=== PATIENT | male | born 1955 | race Caucasian/White ===

== ENCOUNTER 2017-12-19 17:40 | Emergency (ER) | payer BC, OTHER ==
[~2017-12-19] VITALS: Ht 188 cm; Wt 110.2 kg
[~2017-12-19 17:40] MED LIST: CLARITIN10 MG PO; LISINOPRIL10 MG PO
[2017-12-19 18:48] LABS: ABSOLUTE NEUTROPHILS 5.5 thou/uL (1.4-8.2); BASOPHILS 0.5 % (0.0-2.0); EOSINOPHILS 3.6 % (0.0-3.0); HEMATOCRIT 41.4 % (42.0-52.0); HEMOGLOBIN 14.5 gm/dL (14.0-18.0); LYMPHOCYTES 17.7 % (24.0-44.0); MCH 32.2 pg (26.0-34.0); MCV 92.2 fL (80.0-100.0); MONOCYTES 7.5 % (1.0-8.0); PLATELET COUNT 151 thou/uL (150-400); POLYS 70.7 % (36.0-66.0); RBC 4.49 mil/uL (4.50-6.00); RDW 12.6 % (10.5-14.5); WBC 7.8 thou/uL (4.0-11.0)
[2017-12-19 18:54] LABS: CALCIUM 9.1 mg/dL (8.5-10.1); CREATININE 1.3 mg/dL (0.7-1.3); POTASSIUM 3.3 mmol/L (3.5-5.1)
[2017-12-19] MEDS ORDERED: ZESTORETIC 20-1 EAC3 PO (19:14)
[2017-12-19] MEDS ORDERED: FISH OIL 1,001000 M2 PO (19:15)
[2017-12-19] MEDS ORDERED: VITAMIN E400 UNI2 PO (19:16)
[2017-12-19] MEDS ORDERED: ASPIR-TRIN325 MG PO (19:16)
[2017-12-19] MEDS ORDERED: VITAMIN D3400 UNIT PO (19:16)
[2017-12-19] MEDS ORDERED: CALCIUM 600 +1 EAC8 PO (19:16)
[2017-12-19] MEDS ORDERED: ZYRTEC10 M4 PO (19:16)
[2017-12-19] MEDS ORDERED: DOXYCYCLINE 10100 MG PO (19:44)
[2017-12-19 19:55] VITALS: BP 119/80
== END 2017-12-19 19:57 | disposition home or self-care (01) ==
LOC: ER 17:40
PROVIDERS: Physician Assistant
DX: L03.032 Cellulitis of left toe (principal); Z88.8 Allergy status to other drugs, medicaments and biological substances

== ENCOUNTER 2018-01-18 16:26 | Inpatient (IN) | payer BC, OTHER ==
[~2018-01-18] VITALS: Ht 188 cm; Wt 105.7 kg
--- NOTE | ~2018-01-18 | HC ---
[facility] [place] [address] CONSULTATION Name: ÓSCAR SIMPSON Room #: 220-P ADM IN M.R.#: [id number] Admission: 01/18/18 Attend Phys: Carlos Schwartz MD Discharge: Date of : 51 Report #: [id number] THIS REPORT FOR: //name// CC: [facility] physician/PCP Carlos Schwartz DATE OF SERVICE: 01/19/2018 INFECTIOUS DISEASES CONSULTATION REASON FOR CONSULTATION: I was asked to evaluate concerning left fifth toe osteomyelitis. HISTORY OF PRESENT ILLNESS: The patient is a 62-year-old with underlying history of degenerative arthritis. He has had multiple issues with his feet. He has had left Achilles tendon rupture repaired followed by a right ankle fusion. His ankle fusion was approximately 9 weeks ago. He was nonweightbearing and was requiring a lot more activity and support involving his left foot. He developed an ulcer over the lateral aspect of his fifth toe on the left. This was treated with several courses of oral antibiotic therapy including doxycycline, initially followed by Bactrim. Over the last 3 days, he has noticed fever, malaise, occasional chill and increased swelling to the fifth toe. He presents through the Emergency Room for further evaluation. REVIEW OF SYSTEMS: Notes some rash in the feet, right greater than left. No adenopathy. No headache, cough or sputum production. No nausea, vomiting or diarrhea. No dysuria or frequency. ALLERGIES: NAPROSYN. MEDICATIONS: Bactrim, Zestoretic, fish oil, Zyrtec, calcium, vitamin D, vitamin E. Vancomycin and Zosyn added today. PAST MEDICAL HISTORY: Hypertension, arthritis, multiple surgeries on his feet as noted above. FAMILY HISTORY: Noncontributory. SOCIAL HISTORY: Nonsmoker, no significant alcohol intake. REVIEW OF SYSTEMS: As noted above. PHYSICAL EXAMINATION: VITAL SIGNS: He was afebrile, hemodynamically stable, alert and cooperative. HEENT: Unremarkable. CHEST: Clear. [address] [address] CONSULTATION Name: ÓSCAR SIMPSON Room #: 220-P [facility] IN M.R.#: [id number] Admission: 01/18/18 Attend Phys: Carlos Schwartz MD Discharge: Date of : 51 Report #: [id number] HEART: Regular. ABDOMEN: Soft and nontender. EXTREMITIES: Right foot surgical incisions well approximated with no swelling, drainage or erythema. The left foot had swelling, erythema and induration involving the left fifth toe. Minimal pain in this region. Pulses were palpable. Sensation intact. Petechial rash, right foot greater than left. LABORATORY DATA: Hemoglobin 13.5, platelet count 131,000, white count 3.2 with 5% eosinophils with today's WBC of 2.8. Alkaline phosphatase 176. Liver function test normal. CRP 77. X-ray of the toe unremarkable. Creatinine 1.1. Blood cultures are negative to date. MRI scan shows osteomyelitis of the proximal fifth phalanx of the right foot. Soft tissue edema without abscess. IMPRESSION AND PLAN: Osteomyelitis of the left fifth toe due to previous traumatic injury, most likely. Along with this, the patient has had low grade fever and malaise. Also, note relative neutropenia may be drug related. Some of his fever may still have been related to his Bactrim. He does have mild rash to his legs, more of a petechial type rash with normal platelet count. I would recommend continuing broad antibiotic coverage with Zosyn. Would have orthopedic surgery evaluate the left toe for probable amputation. Although he has palpable pulses, we will still screen for evidence of peripheral vascular disease. <ELECTRONICALLY SIGNED> By: Jesús Marie MD 01/22/18 1000 1708 03 Jesús Marie MD /nt
--- NOTE | ~2018-01-18 | HC ---
[facility] [place] [address] CONSULTATION Name: ÓSCAR SIMPSON Room #: 220-P ADM IN M.R.#: [id number] Admission: 01/18/18 Attend Phys: Carlos Schwartz MD Discharge: Date of : 51 Report #: [id number] THIS REPORT FOR: //name// CC: [facility] physician/PCP Carlos Schwartz DATE OF SERVICE: 01/19/2018 CHIEF COMPLAINT: Infected left fifth toe. HISTORY OF PRESENT ILLNESS: This 62-year-old gentleman has had recent reconstructive surgery at the right ankle and foot by my partner, Dr. Eastman. He is making good progress and has recently gotten out of his cast and is in a protective boot. He has been able to advance activities and begin ambulation in a careful and appropriate fashion. He feels he is making good progress on that side. 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 He tried to shave this down and then developed a soft tissue infection. He has been managing this on his own and with outpatient antibiotics. That area has become more inflamed and sensitive and so he was admitted for further assessment. Here x-rays reveal no obvious fracture and only moderate degenerative change. MRI study does suggest evidence of bony reaction and edema possibly consistent with osteomyelitis involving the proximal phalanx of the fifth toe. At the time of my evaluation, he states he has mildly diminished sensation. He notes no significant discomfort at the left fifth toe. The toe demonstrates a fixed flexion contracture at the PIP joint. There is some heavy callus formation and a small wound with minor serous drainage and a little bit of generalized edema. Findings are certainly consistent with cellulitis and could be consistent with a deep infection, osteomyelitis as well. There is no evidence of abscess and no purulence. The other digits appeared to be well perfused and well aligned without evidence of significant damage. In summary, this gentleman's history and chronic deformity and his new MRI study suggests that he has soft tissue breakdown over the area of PIP flexion contracture and probably some bony involvement with infection. Given this, we discussed the possibility of toe amputation. He seems to understand this quite well and states he would be willing to go ahead with amputation if absolutely necessary. However, he is hopeful that we might be able to achieve soft tissue and bony healing with more conservative measures using IV antibiotics. He understands the potential risks and benefits of both options, but at this point is rather adequately in favor of nonsurgical management. I believe there is some potential for healing given the current appearance and he is already on IV antibiotics. I do not think there is much else that I would suggest aside from [address] [address] CONSULTATION Name: ÓSCAR SIMPSON Room #: 220-P ADM IN M.R.#: [id number] Admission: 01/18/18 Attend Phys: Carlos Schwartz MD Discharge: Date of : 51 Report #: [id number] topical care and protection for any further pressure or abrasion. He plans to be in the hospital for the next 48 hours at least for antibiotic coverage. He is hopeful that he might be able to move to outpatient oral antibiotics and then follow up with Dr. Eastman. He understands that if this fails to heal adequately, then probably amputation of the digit at the MP joint would be the best option. <ELECTRONICALLY SIGNED> By: Kane Goldberg MD 01/22/18 1101 [id number] [id number] Kane Goldberg MD /nt
--- NOTE | ~2018-01-18 | HC ---
[facility] [place] [address] CONSULTATION Name: ÓSCAR SIMPSON Room #: 220-P ADM IN M.R.#: [id number] Admission: 01/18/18 Attend Phys: Carlos Schwartz MD Discharge: Date of : 51 Report #: [id number] THIS REPORT FOR: //name// CC: [facility] physician/PCP Carlos Schwartz DATE OF SERVICE: 01/19/2018 WOUND CARE CONSULTATION CHIEF COMPLAINT: Left fifth toe infection. HISTORY OF PRESENT ILLNESS: This is a 62-year-old white male with a history of a callus on his left fifth toe, which he states started within the past month. The patient approximately 9 weeks ago had right ankle fusion. The patient states that he was nonweightbearing on his right lower extremity and was doing a lot more activities on his left foot and noticed approximately one month ago, he started developing a callus over his left fifth toe. The patient states in the past several days, he noticed there was increased redness and was started on courses of antibiotics. The patient states that recently he started having generalized fevers and chills, which prompted him to come to the Emergency Department and he was evaluated. The patient was admitted for possible osteomyelitis of the underlying fifth toe. The patient states his right foot is doing quite well post surgery. PAST MEDICAL HISTORY: Significant for hypertension, osteoarthritis and multiple previous surgeries on his feet. CURRENT MEDICATIONS: Include Bactrim, Zestoretic, Zyrtec, calcium, vitamin D and IV antibiotics. DRUG ALLERGIES: NAPROSYN. SOCIAL HISTORY: The patient does not smoke or drink alcohol. FAMILY HISTORY: Not pertinent to current medical condition. REVIEW OF SYSTEMS: CONSTITUTIONAL: The patient had fevers and chills over the past couple of days. NEUROLOGIC: The patient has generalized malaise, but no isolated weakness in the arms or legs. EYES: No complaints. ENT: No complaints. CARDIAC: The patient denies chest pain, palpitations or peripheral edema. RESPIRATORY: The patient denies shortness of breath, cough or wheezes. GASTROINTESTINAL: The patient denies nausea, vomiting or abdominal pain. [facility] [address] [place] [address] CONSULTATION Name: ÓSCAR SIMPSON Room #: 220-P [facility] IN M.R.#: [id number] Admission: 01/18/18 Attend Phys: Carlos Schwartz MD Discharge: Date of : 51 Report #: [id number] GENITOURINARY: The patient denies urgency or frequency. MUSCULOSKELETAL: No complaints. SKIN: There is a chronic ulceration on the lateral aspect of his fifth toe. PHYSICAL EXAMINATION: VITAL SIGNS: Stable. The patient is afebrile. GENERAL: This is alert and oriented x 3, pleasant white male who is in absolutely no distress. HEENT: Normocephalic, atraumatic. Extraocular movements are moist. Pupils are round. Sclerae white. NECK: Supple, nontender. LUNGS: Clear. HEART: Regular, without murmur. ABDOMEN: Soft, otherwise nontender. EXTREMITIES: The patient moves all extremities without difficulty. Distal pulses intact, 2+ dorsalis pedis and posterior tibial on the left foot. Right foot is not visualized secondary to a Cam walker in place. Evaluation of the left fifth toe reveals a callous over the lateral aspect of the fifth toe, with no actual open draining wound that I can see. The toe itself has fusiform swelling and erythema and it is slightly warm to touch. There are no signs of any cellulitis extending up on to the foot. Left heel is intact. NEUROLOGIC: Cranial nerves 2-12 are grossly intact. Motor and sensory are grossly intact. LABORATORY DATA: White count 2.8, hemoglobin 13.5. Albumin 3.4. C-reactive protein was elevated at 77. MRI of the foot shows changes consistent with osteomyelitis on the proximal phalanx of the fifth toe. Soft tissue changes as well, but no signs of abscess. WOUND CARE COURSE: At this time, we will paint the toe with Betadine, pending orthopedic evaluation. The patient has been seen by Dr. Eastman for the ankle fusion 9 weeks ago. His group will be consulted again. IV antibiotics will be managed by Infectious Disease. IMPRESSION: 1. Chronic ulceration, left fifth toe, with necrosis of bone. 2. Severe osteoarthritis, bilateral feet. 3. History of hypertension. PLAN: Described in length as above. We will continue to follow the patient. Await orthopedic and surgical evaluation. By: [id number] [id number] Franco Kee MD /nt
[~2018-01-18 16:26] MED LIST changes: +ASPIR-TRIN325 MG PO; +CALCIUM 600 +1 EAC8 PO; +DOXYCYCLINE 10100 MG PO; +FISH OIL 1,001000 M2 PO; +VITAMIN D3400 UNIT PO; +VITAMIN E400 UNI2 PO; +ZESTORETIC 20-1 EAC3 PO; +ZYRTEC10 M4 PO
[2018-01-18 17:09] VITALS: BP 114/74
[2018-01-18 18:03] LABS: HEMATOCRIT 42.7 % (42.0-52.0); HEMOGLOBIN 14.7 gm/dL (14.0-18.0); MCH 31.7 pg (26.0-34.0); MCHC 34.4 g/dL (28.0-37.0); MCV 92.4 fL (80.0-100.0); PLATELET COUNT 130 thou/uL (150-400); RBC 4.62 mil/uL (4.50-6.00); RDW 13.6 % (10.5-14.5); WBC 3.2 thou/uL (4.0-11.0)
[2018-01-18 18:09] LABS: CALCIUM 8.6 mg/dL (8.5-10.1); CREATININE 1.4 mg/dL (0.7-1.3); POTASSIUM 3.7 mmol/L (3.5-5.1)
[2018-01-18 18:15] LABS: ALBUMIN 3.4 g/dL (3.4-5.0); TOTAL BILIRUBIN 0.3 mg/dL (<0.1-1.0); TOTAL PROTEIN 7.2 g/dL (6.4-8.2)
[2018-01-18 18:24] LABS: ABSOLUTE NEUTROPHILS 2.2 thou/uL (1.4-8.2)
[2018-01-18] MEDS ORDERED: BACTRIM DS TAB1 EACH PO (18:54)
[2018-01-18 18:55] VITALS: BP 117/62
[2018-01-18 20:26] VITALS: BP 147/82
[2018-01-19 00:09] VITALS: BP 120/64
[2018-01-19 04:39] VITALS: BP 129/68
[2018-01-19 05:25] LABS: HEMOGLOBIN 13.5 gm/dL (14.0-18.0); MCH 31.6 pg (26.0-34.0); MCHC 34.5 g/dL (28.0-37.0); MCV 91.6 fL (80.0-100.0); RBC 4.26 mil/uL (4.50-6.00); RDW 13.1 % (10.5-14.5); WBC 2.8 thou/uL (4.0-11.0)
[2018-01-19 05:50] LABS: CALCIUM 7.9 mg/dL (8.5-10.1); CREATININE 1.1 mg/dL (0.7-1.3); MAGNESIUM 1.9 mg/dL (1.8-2.4); POTASSIUM 3.5 mmol/L (3.5-5.1)
[2018-01-19 07:40] VITALS: BP 122/82
[2018-01-19 16:20] VITALS: BP 111/58
[2018-01-19 20:22] VITALS: BP 132/76
[2018-01-20 04:59] VITALS: BP 129/69
[2018-01-20 05:57] LABS: CALCIUM 8.1 mg/dL (8.5-10.1); CREATININE 1.2 mg/dL (0.7-1.3); MAGNESIUM 1.9 mg/dL (1.8-2.4); POTASSIUM 3.5 mmol/L (3.5-5.1)
[2018-01-20 06:40] LABS: HEMATOCRIT 38.5 % (42.0-52.0); HEMOGLOBIN 13.1 gm/dL (14.0-18.0); MCH 31.5 pg (26.0-34.0); MCV 92.7 fL (80.0-100.0); RBC 4.15 mil/uL (4.50-6.00); RDW 13.1 % (10.5-14.5); WBC 3.8 thou/uL (4.0-11.0)
[2018-01-20 20:00] VITALS: BP 109/69
[2018-01-21 06:30] LABS: HEMATOCRIT 38.8 % (42.0-52.0); HEMOGLOBIN 13.2 gm/dL (14.0-18.0); MCH 31.5 pg (26.0-34.0); MCHC 33.9 g/dL (28.0-37.0); MCV 92.8 fL (80.0-100.0); RBC 4.18 mil/uL (4.50-6.00); RDW 13.2 % (10.5-14.5); WBC 3.8 thou/uL (4.0-11.0)
[2018-01-21 06:37] LABS: CALCIUM 8.3 mg/dL (8.5-10.1); POTASSIUM 4.1 mmol/L (3.5-5.1)
[2018-01-21 08:03] VITALS: BP 141/86
[2018-01-21 19:39] VITALS: BP 141/74
[2018-01-22 07:10] VITALS: BP 121/77
[2018-01-22 08:01] LABS: HEMATOCRIT 39.2 % (42.0-52.0); HEMOGLOBIN 13.5 gm/dL (14.0-18.0); MCH 31.8 pg (26.0-34.0); MCHC 34.4 g/dL (28.0-37.0); MCV 92.3 fL (80.0-100.0); RBC 4.24 mil/uL (4.50-6.00); RDW 13.2 % (10.5-14.5); WBC 4.6 thou/uL (4.0-11.0)
[2018-01-22 08:10] LABS: CALCIUM 8.4 mg/dL (8.5-10.1); MAGNESIUM 1.9 mg/dL (1.8-2.4); POTASSIUM 3.6 mmol/L (3.5-5.1)
[2018-01-22 20:00] VITALS: BP 142/76
[2018-01-23 07:07] VITALS: BP 145/85
[2018-01-23 10:09] VITALS: BP 145/85
== END 2018-01-23 14:39 | disposition home health service (06) | DRG 540 ==
LOC: ER 16:26 → 4E 18:21 → EROBS 18:21 → 4E 19:57 → SICU 01-20 14:12 → ENTRNSPT 01-23 14:23 → EDTRNSPTSTS 01-23 14:30 → SICU 01-23 14:39
PROVIDERS: Emergency Medicine; Internal Medicine
PROC: 05HY33Z Insertion of Infusion Device into Upper Vein, Percutaneous Approach (ICD-10-PCS; principal; 2018-01-22)
PROC: B54MZZA Ultrasonography of Right Upper Extremity Veins, Guidance (ICD-10-PCS; principal; 2018-01-22)
DX: M86.8X7 Other osteomyelitis, ankle and foot (principal); N17.9 Acute kidney failure, unspecified; L03.032 Cellulitis of left toe; I10 Essential (primary) hypertension; M19.90 Unspecified osteoarthritis, unspecified site; Q66.89 Other specified congenital deformities of feet; L84 Corns and callosities; L97.524 Non-pressure chronic ulcer of other part of left foot with necrosis of bone; M19.072 Primary osteoarthritis, left ankle and foot; M19.071 Primary osteoarthritis, right ankle and foot; D72.819 Decreased white blood cell count, unspecified; L89.899 Pressure ulcer of other site, unspecified stage; Z88.8 Allergy status to other drugs, medicaments and biological substances; Z98.1 Arthrodesis status
CPT/HCPCS: 10084; 15000; 27000

== ENCOUNTER → 2018-01-29 | Outpatient (CLI) | payer BC, OTHER ==
[~2018-01-29] MED LIST changes: +BACTRIM DS TAB1 EACH PO
== END ==
LOC: HYPER 06:45
DX: T81.89XA Other complications of procedures, not elsewhere classified, initial encounter (principal); L97.524 Non-pressure chronic ulcer of other part of left foot with necrosis of bone; M86.8X7 Other osteomyelitis, ankle and foot; I10 Essential (primary) hypertension; L30.9 Dermatitis, unspecified; M19.071 Primary osteoarthritis, right ankle and foot; M19.072 Primary osteoarthritis, left ankle and foot; Z87.891 Personal history of nicotine dependence; Y92.89 Other specified places as the place of occurrence of the external cause; Y83.8 Other surgical procedures as the cause of abnormal reaction of the patient, or of later complication, without mention of misadventure at the time of the procedure

== ENCOUNTER → 2018-02-12 | Outpatient (CLI) | payer BC, OTHER | LOC: HYPER 07:07 | DX: T81.89XD Other complications of procedures, not elsewhere classified, subsequent encounter (principal); L97.524 Non-pressure chronic ulcer of other part of left foot with necrosis of bone; L03.032 Cellulitis of left toe; M86.8X7 Other osteomyelitis, ankle and foot; I10 Essential (primary) hypertension; L84 Corns and callosities; M19.071 Primary osteoarthritis, right ankle and foot; M19.072 Primary osteoarthritis, left ankle and foot; Z87.891 Personal history of nicotine dependence; Y83.8 Other surgical procedures as the cause of abnormal reaction of the patient, or of later complication, without mention of misadventure at the time of the procedure ==

== ENCOUNTER → 2018-02-27 | Outpatient (CLI) | payer BC, OTHER | LOC: HYPER 06:47 | DX: L97.524 Non-pressure chronic ulcer of other part of left foot with necrosis of bone (principal); M19.071 Primary osteoarthritis, right ankle and foot; M19.072 Primary osteoarthritis, left ankle and foot; R60.0 Localized edema; L30.9 Dermatitis, unspecified; I10 Essential (primary) hypertension; M86.68 Other chronic osteomyelitis, other site; Z87.891 Personal history of nicotine dependence ==

== ENCOUNTER → 2020-07-15 | Outpatient (CLI) | payer BC, OTHER | LOC: SJCVCIMAG 09:00 | PROVIDERS: ATTEND Nuclear Medicine Nuclear Cardiology | DX: I73.9 Peripheral vascular disease, unspecified (principal); L97.529 Non-pressure chronic ulcer of other part of left foot with unspecified severity ==